=== PATIENT | male | born 1960 | race Caucasian/White ===

== ENCOUNTER 2018-01-13 21:48 | Day surgery (SDC) | payer OTHER ==
--- NOTE | 2018-01-13 21:56 | PDOC ---
History of Present Illness - General History Source: Patient Exam Limitations: No Limitations - History of Present Illness Initial Comments: 01/13/18 22:23 The patient is a 57-year-old male with no significant past medical history presents to the emergency department with abdominal pain. The patient presents with constant RLQ pain for the past 1 day, initially mild pain thats been progressively worsening throughout the day, that is aggravated with movement, relief noted when staying entirely still. Denies nausea, vomiting, or fever. The patient states he can intake solids/liquids w/o trouble recalls his last meals to be around 7:00 pm. The patient reports having regular bowel movements per before, denies diarrhea, constipation, hematochezia or melena, denies urinary concerns. Denies prior diverticulitis. The patient states he has a hx of mild chronic back pain, that isnt aggravated with the abdominal pain. PCP: None reported Allergies: NKDA Surgical/procedural history: Appendectomy. The patient reports having a colonoscopy done in the past with unremarkable results. Social history: Current everyday smoker, more than a pack a day for the past 50 years Denies alcohol use of recreational drug use. <Eda Madden - Last Filed: 01/13/18 22:30> <Marlin Redding - Last Filed: 01/14/18 06:35> - General Chief Complaint: Pain, Acute Stated Complaint: ABD PAIN Time Seen by Provider: 01/13/18 21:50 Past History <Eda Madden - Last Filed: 01/13/18 22:30> - Suicide/Smoking/Psychosocial Hx Smoking Status: Yes Smoking History: Current some day smoker Number of Cigarettes Smoked Daily: 10 Cigars Per Day: 2 <Marlin Redding - Last Filed: 01/14/18 06:35> - Past Medical History Allergies/Adverse Reactions: Allergies Allergy/AdvReac Type Severity Reaction Status Date / Time No Known Allergies Allergy Unverified 01/13/18 21:49 Home Medications: Ambulatory Orders NK [No Known Home Medication] 01/13/18 Review of Systems - Review of Systems Able to Perform ROS?: Yes Comments:: 01/13/18 22:23 CONSTITUTIONAL: Absent: fever, no chills, no fatigue EYES: Absent: visual changes ENT: Absent: ear pain, no sore throat CARDIOVASCULAR: Absent: chest pain, no palpitations RESPIRATORY: Absent: cough, no SOB GI: (+) RLQ pain. Absent: no nausea, no vomiting, no constipation, no diarrhea GENITOURINARY: Absent: dysuria, no frequency, no hematuria MUSKULOSKELETAL: Absent: back pain, no arthralgia, no myalgia SKIN: Absent: rash NEURO: Absent: headache <Eda Madden - Last Filed: 01/13/18 22:30> *Physical Exam - Vital Signs Last Vital Signs Temp Pulse Resp BP Pulse Ox 98.8 F 68 18 154/104 98 01/13/18 21:55 01/13/18 21:55 01/13/18 21:55 01/13/18 21:55 01/13/18 21:55 - Physical Exam Comments: 01/13/18 22:27 GENERAL: The patient is awake, alert, and fully oriented, in no acute distress. HEAD: Normal with no signs of trauma. EYES: Pupils equal, round and reactive to light, extraocular movements intact, sclera anicteric, conjunctiva clear with no pallor. ENT: Ears normal, nares patent, oropharynx clear without exudates. Moist mucous membranes. NECK: Normal range of motion, supple without lymphadenopathy, JVD, or masses. LUNGS: Breath sounds equal, clear to auscultation bilaterally. No wheeze/ crackles. HEART: Regular rate and rhythm, normal S1 and S2 without murmur or rub. ABDOMEN: (+) Normal bowel sounds. Distended but soft. Marked RLQ tenderness with positive rebound tenderness. No other tenderness. No involuntary guarding. No masses palpated. Femoral pulse was palpable b/l at the groin. EXTREMITIES: Normal range of motion, no edema. No clubbing or cyanosis. No cords, erythema, or tenderness. NEUROLOGICAL: Cranial nerves II through XII grossly intact. Normal speech, normal gait. PSYCH: Normal mood, normal affect. SKIN: Warm, Dry, normal turgor, no rashes or lesions noted. <Eda Madden - Last Filed: 01/13/18 22:30> ED Treatment Course - LABORATORY CBC & Chemistry Diagram: 01/13/18 22:15 01/13/18 22:15 - Medications Given in the ED: ED Medications Discontinued Medications Generic Name Dose Route Start Last Admin Trade Name Freq PRN Reason Stop Dose Admin Ketorolac Tromethamine 30 mg 01/13/18 22:12 01/13/18 22:22 Toradol Injection - IVPUSH 01/13/18 22:13 30 mg ONCE ONE Administration <ChanoEda - Last Filed: 01/13/18 22:30> - LABORATORY CBC & Chemistry Diagram: 01/13/18 22:15 01/13/18 22:15 <Marlin Redding - Last Filed: 01/14/18 06:35> Progress Note - Progress Note Progress Note: Documentation has been prepared under my direction and personally reviewed by me in its entirety. I attest that this documented accurately reflects all work, treatment, procedures and medical decision making performed by me. <Marlin Redding - Last Filed: 01/14/18 06:35> Medical Decision Making - Medical Decision Making As noted above, this 57-year-old man without significant past medical history presents with 2 day history of progressive right lower quadrant pain. He has no associated symptoms of fever/chills, nausea/vomiting/diarrhea, dysuria/ hematuria. Patient last ate at approximately 7 PM. Had normal bowel movement this morning. Exam as noted: Patient has localized marked tenderness in the right lower quadrant with local peritoneal irritation signs. Workup notable for mild elevation of white blood cell count and evidence of volume depletion with prerenal azotemia (BUN18/cre0.9 )/spec gravity urine of 0.125. Abdominal/pelvic CT with IV contrast performed. Preliminary results discussed with Dr. Lui of Imaging auctioneer tobacco: Area of inflammation in right lower quadrant in close proximity to surgical clips and apparent appendicolith. This could be consistent with stump appendicitis . [facility] is telephone instrument supervisor for general surgery. Case discussed with : Because of the distinct possibility of stump appendicitis versus Meckel's diverticulum, patient will be admitted (satellite ) to Dr. Frausto's service with plan for exploration in the morning at [facility]. Results of the workup and preliminary plan for admission and possible exploration discussed with the patient and his . They are in full understanding of results and with full agreement of the plan. They realize that the patient will be admitted to [facility] and likely have surgical procedure in the morning. As for the patient's previous appendectomy: The patient now recalls that it was performed at [facility] in 1995. It was a standard open non- laparoscopic appendectomy . He does not recall the name of the surgeon except that he was an Pashto cardiac surgeon. Repeat vital signs: BP 132/76, HR 63/min, T 98.6F, pulse oximetry 97% on RA 12-lead electrocardiogram normal sinus rhythm at 61 bpm; axis, intervals and wave forms are all normal; no evidence of ST or T-wave abnormalities 01/14/18 06:26 Portable chest x-ray performed: No evidence of acute disease <Marlin Redding - Last Filed: 01/14/18 06:35> *DC/Admit/Observation/Transfer - Attestations Scribe Attestion: 01/13/18 22:28 Documentation prepared by Eda Madden, acting as medical sales consultant for Marlin Redding MD. <Eda Madden - Last Filed: 01/13/18 22:30> - Discharge Dispostion Decision to Admit order: Yes <Marlin Redding - Last Filed: 01/14/18 06:35> Diagnosis at time of Disposition: Abdominal pain, acute, right lower quadrant - Discharge Dispostion Condition at time of disposition: Stable
[2018-01-13] MEDS ORDERED: KETOROLAC TROMETHAMINE 30 MG/1 ML VIAL IVPUSH ONE (22:12)
[2018-01-13] MEDS ORDERED: KETOROLAC TROMETHAMINE 30 MG/1 ML VIAL ONE (22:20)
[2018-01-13 22:31] LABS: BASO % 0.4 % (0-2.0); EOS % 1.8 % (0-4.5); HEMATOCRIT 46.8 % (35.4-49); HEMOGLOBIN 15.7 GM/dl (11.7-16.9); LYMPH % 25.2 % (8-40); MCH 30.1 pg (25.7-33.7); MCHC 33.5 g/dl (32.0-35.9); MEAN CELL VOLUME 89.8 fl (80-96); MEAN PLT VOLUME 6.9 fl (7.5-11.1); MONO % 6.1 % (3.8-10.2); NEUT % 66.5 % (42.8-82.8); PLATELET COUNT 217 K/MM3 (134-434); RBC 5.21 M/mm3 (4.00-5.60); RDW 13.5 % (11.9-15.9); WHITE BLOOD COUNT 11.4 K/mm3 (4.0-10.8)
[2018-01-13 22:42] LABS: ALBUMIN 3.5 g/dl (3.5-5.0); ALK PHOS 49 U/L (32-92); ANION GAP 4 (8-16); BILIRUBIN,TOTAL 0.4 mg/dl (0.2-1.0); BLOOD UREA NITROGEN 17 mg/dl (7-18); CALCIUM 8.8 mg/dl (8.4-10.2); CHLORIDE 107 mmol/L (98-107); CO2 27 mmol/L (22-28); CREATININE 0.8 mg/dl (0.6-1.3); GLUCOSE,RANDOM 95 mg/dl (74-106); POTASSIUM 3.9 mmol/L (3.5-5.1); SGOT/AST 15 U/L (10-42); SGPT/ALT 16 U/L (10-40); SODIUM 138 mmol/L (136-145); TOT PROT 6.2 g/dl (6.4-8.3)
[2018-01-13 23:41] LABS: URINE APPEARANCE Clear; URINE BILIRUBIN Negative (NEGATIVE); URINE COLOR Yellow; URINE GLUCOSE (UA) Negative (NEGATIVE); URINE KETONE Negative (NEGATIVE); URINE LEUK ESTERASE Negative (NEGATIVE); URINE NITRITE Negative (NEGATIVE); URINE PROTEIN Negative (NEGATIVE); URINE UROBILINOGEN 0.2 (0.2-1.0)
[2018-01-13 23:49] LABS: URINE WBC 0-2 (0-2)
[2018-01-14] MEDS ORDERED: PIPERACILLIN/TAZOB 3.375 GM 3.375 GM in DEXTROSE 5%-WATER - 50 ML IVPB ONE (01:02)
[2018-01-14] MEDS ORDERED: PIPERACILLIN/TAZOBACTAM 3.375 GM VIAL IVPB ONE (01:05)
[2018-01-14] MEDS ORDERED: CEFOXITIN SODIUM 2 GM in DEXTROSE 5%-WATER - 100 ML IVPB ONE ×2 (01:38→11:45)
[2018-01-14] MEDS ORDERED: ACETAMINOPHEN 1000 MG/100 ML VIAL (NON FORMULARY) IVPB PRN (01:38)
[2018-01-14] MEDS ORDERED: morphine CARPU-JECT 2 MG/1 ML DISP.SYRIN IVPUSH ONE ×2 (01:40→03:33)
[2018-01-14] MEDS ORDERED: morphine SULFATE 4 MG/ML VIAL ONE (01:55)
[2018-01-14] MEDS: LACTATED RINGERS SOLUTION 1,000 ML IV SCH ×3 (02:09→16:55)
[2018-01-14 03:50] VITALS: BMI 34.4
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
[2018-01-14 07:33] LABS: INR 0.96 (0.83-1.09); PROTHROMBIN TIME (PATIENT) 10.9 SEC (9.7-13.0)
[2018-01-14] MEDS ORDERED: morphine SULFATE 4 MG/ML VIAL IVPUSH ONE (07:57)
--- NOTE | 2018-01-14 09:02 | EKG ---
Test Reason : Blood Pressure : / mmHG Vent. Rate : 061 BPM Atrial Rate : 061 BPM P-R Int : 172 ms QRS Dur : 090 ms QT Int : 410 ms P-R-T Axes : 063 001 065 degrees QTc Int : 412 ms POOR DATA QUALITY, INTERPRETATION MAY BE ADVERSELY AFFECTED NORMAL SINUS RHYTHM NORMAL ECG NO PREVIOUS ECGS AVAILABLE Confirmed by MARIA TERESA TATE MD ([id number]) on 01/14/2018 9:01:40 AM Referred By: MD COBB Confirmed By:MARIA TERESA TATE MD
[2018-01-14] MEDS ORDERED: MORPHINE SULFATE 2 MG/ML VIAL IVPUSH PRN (09:29)
[2018-01-14] MEDS ORDERED: ONDANSETRON 4 MG/2 ML VIAL IVPUSH PRN ×2 (12:35→16:32)
[2018-01-14] MEDS ORDERED: ROCURONIUM BROMIDE 50 MG/5 ML VIAL ONE (12:54)
[2018-01-14] MEDS ORDERED: MIDAZOLAM HCL 2 MG/2 ML SINGLE DOSE VIAL ONE (12:54)
[2018-01-14] MEDS ORDERED: SUCCINYLCHOLINE CHLORIDE 200 MG/10 ML VIAL ONE (12:54)
[2018-01-14] MEDS ORDERED: BUPIVACAINE HCL/PF 0.5% (5MG/ML) 10 ML VIAL ONE (13:45)
[2018-01-14] MEDS ORDERED: DESFLURANE GAS 240 ML BOTTLE IH ONE (13:53)
[2018-01-14] MEDS ORDERED: DEXAMETHASONE SOD PHOSPHATE 4 MG/1 ML VIAL ONE (13:57)
[2018-01-14] MEDS ORDERED: BENZOIN/ALOE VERA/STORAX/TOLU 58 ML BOTTLE ONE (14:08)
[2018-01-14] MEDS ORDERED: BUPIVACAINE HCL/PF (5 MG/ML) 30 ML VIAL IJ ONE (15:10)
--- NOTE | 2018-01-14 16:02 | OP ---
Operative Note - Note: Operative Date: 01/14/18 Pre-Operative Diagnosis: stump appendicitis Operation: laparoscopic appendectomy (of stump) Findings: appendiceal base inflamed and adherent to terminal ileum and sidewall, adjacent veil of Treves partly inflamed, no significant fluid, adhesions of cecum and inflamed fat to right sidewall; apparent appendiceal base and short cuff of cecum taken with stapler Post-Operative Diagnosis: Same as Pre-op Surgeon: Pratik Frausto Anesthesiologist/PEDIATRICIAN: Juma Brown Specimens Removed: appendiceal stump with cuff of cecum to pathology Estimated Blood Loss (mls): 15 Drains & Tubes with Location: Hart out at end of case Drains, Volume Out (mls): 200 (UOP) Fluid Volume Replaced (mls): 1,000 (crystalloid) Operative Report Dictated: Yes
[2018-01-14] MEDS ORDERED: IBUPROFEN 800 MG/8 ML IJ IVPB ONE ×2 (16:16→16:30)
[2018-01-14] MEDS ORDERED: oxyCODONE HCL 5 MG TABLET PO PRN ×2 (16:20→16:32)
[2018-01-14] MEDS ORDERED: ACETAMINOPHEN 325 MG TABLET (FP) PO SCH (18:00)
[2018-01-14] MEDS ORDERED: CEFOXITIN SODIUM 2 GM in DEXTROSE 5%-WATER - 100 ML IVPB SCH (18:00)
[2018-01-14] MEDS: CEFOXITIN SODIUM 2 GM in DEXTROSE 5%-WATER - 100 ML IVPB SCH (18:35)
[2018-01-14] MEDS: ACETAMINOPHEN 325 MG TABLET (FP) PO SCH (18:40)
[2018-01-14] MEDS: IBUPROFEN 600 MG TABLET (FP) PO SCH (20:59)
[2018-01-14] MEDS ORDERED: IBUPROFEN 600 MG TABLET (FP) PO SCH (21:00)
[2018-01-15] MEDS: ACETAMINOPHEN 325 MG TABLET (FP) PO SCH ×3 (00:06→12:28)
[2018-01-15] MEDS: LACTATED RINGERS SOLUTION 1,000 ML IV SCH (01:23)
[2018-01-15] MEDS: CEFOXITIN SODIUM 2 GM in DEXTROSE 5%-WATER - 100 ML IVPB SCH ×2 (01:24→10:33)
[2018-01-15] MEDS: IBUPROFEN 600 MG TABLET (FP) PO SCH ×2 (03:20→09:14)
[2018-01-15 08:20] LABS: BASO % 0.2 % (0-2.0); HEMATOCRIT 41.8 % (35.4-49); HEMOGLOBIN 14.5 GM/dL (11.7-16.9); LYMPH % 8.9 % (8-40); MCH 31.2 pg (25.7-33.7); MCHC 34.8 g/dl (32.0-35.9); MEAN CELL VOLUME 89.8 fl (80-96); MEAN PLT VOLUME 7.3 fl (7.5-11.1); MONO % 3.3 % (3.8-10.2); NEUT % 87.6 % (42.8-82.8); PLATELET COUNT 190 K/MM3 (134-434); RBC 4.66 M/mm3 (4.00-5.60); RDW 14.1 % (11.9-15.9); WHITE BLOOD COUNT 13.6 K/mm3 (4.0-10.0)
[2018-01-15 10:45] VITALS: BP 122/67; PULSE 59; TEMP 98.7
--- NOTE | 2018-01-15 12:47 | DS ---
Physical Examination Vital Signs: Vital Signs Temperature 98.7 F 01/15/18 10:00 Pulse Rate 59 L 01/15/18 10:00 Respiratory Rate 18 01/15/18 10:00 Blood Pressure 122/67 01/15/18 10:00 O2 Sat by Pulse Oximetry (%) 96 01/15/18 09:00 no fevers Findings/Remarks: Pt seen ambulating in room, examined in bed, with family present. Pain controlled with nonnarcotics. Voiding and having BMs. Tolerating diet. RLQ pain is gone, just minimal incisional pain. Constitutional: Yes: No Distress, Calm, Obese Eyes: Yes: Conjunctiva Clear, EOM Intact HENT: Yes: Atraumatic, Normocephalic Cardiovascular: Yes: Regular Rate and Rhythm. No: Murmur Respiratory: Yes: Regular, CTA Bilaterally Gastrointestinal: Yes: Normal Bowel Sounds, Soft, Abdomen, Obese. No: Tenderness ...Rectal Exam: Yes: Deferred Extremities: No: Cool, Cyanosis Integumentary: Yes: Bruising (mild ecchymosis at infraumbilical and LLQ sites under dressings), Incision (x3 dressed). No: Jaundice, Rash Wound/Incision: Yes: Steri Strips (under dressings), Dressing Dry and Intact (x3 ). No: Dressing Removed Neurological: Yes: Alert, Oriented. No: Unsteady Gait Labs: CBC, BMP 01/15/18 07:50 mild postop leukocytosis, likely demargination Discharge Summary Reason For Visit: ACUTE STUMP APPENDICITIS Current Active Problems Abdominal pain, acute, right lower quadrant (Acute) Cannabis abuse, episodic use (Acute) Obesity due to excess calories (Acute) Other appendicitis (Acute) Right lower quadrant abdominal tenderness with rebound tenderness (Acute) Tobacco dependence due to cigarettes (Acute) Procedures: Principal: laparoscopic (stump) appendectomy Hospital Course: 57yo obese M smoker (cigs and MJ) with h/o open appendectomy 1995 presented with signs and symptoms of appendicitis. WBC 11, CT confirmed likely stump appendicitis with inflammation at cecal base and TI, no perforation or abscess, possible appendicolith, few clips visible. He was taken for diagnostic laparoscopy with findings of inflammation at cecal base and possible stump/base of appendix still visible - laparoscopic stump appendectomy performed taking small cuff of cecum as well. He received perioperative Cefoxitin, fluids and pain meds. Postoperatively, he tolerated diet, voided, had BMs and pain was controlled with oral nonnarcotics. He is ambulating well with minimal incisional pain only. Discharged to home with lifting restrictions to f/u in 2 weeks, and with PMD for smoking cessation. Time spent on discharge: 35 minutes. Condition: Good - Instructions Diet, Activity, Other Instructions: Postoperative instructions: You had a laparoscopic (stump) appendectomy on by Dr. Pratik Frausto of [facility]. Activity: Resume your usual activities gradually, but no heavy exertion or lifting more than 10-15 pounds for 1 month. Remove dressings 48 hours after surgery; sticky tapes underneath will fall off by themselves. You may shower daily starting then, just pat the incision areas dry. No bath or swimming until skin incisions are healed. Eat lightly at first, but advance to your usual diet as tolerated. Pain: For pain, you may use and alternate Tylenol (acetaminophen) and/or ibuprofen every 6 hours each as needed; this means that you can take one OR the other at 3-hour intervals. Do not take more than 4000mg of acetaminophen in a day. Take medications as prescribed or indicated on the labeling. Follow-up: Call Dr. Frausto's office at [phone] to make your postop appointment (Tuesday ~2 weeks after surgery). Clinic is held in the Diagnostic [facility] on the first floor of [facility]. Call the office if you have: * increasing pain not responsive to pain medication * fever of 101F or higher * vomiting * unusual or increasing bleeding or drainage from wounds * increasing redness or swelling at wound sites * inability to urinate Also, see your primary medical doctor (Dr. Jonas) within 1-2 weeks and discuss smoking cessation. Referrals: Jasmyne Jonas [Non Staff, Medical] - Disposition: HOME - Home Medications Comprehensive Discharge Medication List: Ambulatory Orders Acetaminophen [Tylenol .Regular Strength -] 650 mg PO Q6H tablet 01/15/18 Ibuprofen [Motrin -] 600 mg PO Q6H tablet 01/15/18
--- NOTE | 2018-01-18 11:22 | PATH ---
Surgical Pathology Report Patient Name: DONNA GONZALEZ [facility]. Rec. #: [id number] /Age/Gender: 1960 (Age: 57) / M Account: [id number] Location: AMBULATORY SURG Taken: 01/14/2018 Received: 01/16/2018 Reported: 01/18/2018 Physicians: Pratik Frausto M.D. PHYSICIAN EMERGENCY DEPT Specimen(s) Received APPENDICEAL STUMP WITH PART OF CECUM Clinical History Right lower quadrant pain, stump appendicitis Final Diagnosis APPENDICEAL STUMP WITH CUFF OF CECUM, LAPAROSCOPIC APPENDECTOMY: PORTION OF APPENDIX WITH MARKED ACUTE INFLAMMATION CONSISTENT WITH ACUTE STUMP APPENDICITIS AND PERIAPPENDICITIS. ACUTE SEROSITIS. COLONIC MUCOSA WITH MARKED ACUTE SUBSEROSAL INFLAMMATION. Electronically Signed Gerda Tom M.D. Gross Description Received in formalin labeled "appendiceal stump with cuff of cecum," is a 3.2 x 2.5 x 0.9 cm portion of soft tissue with a stapled margin of resection. The serosa is staples-echols and shaggy. Sectioning reveals a grossly unremarkable lumen. The specimen is entirely and sequentially submitted from proximal to distal in 4 cassettes with the staple line in cassette 1. 01/16/2018 saudi01/16/2018
--- NOTE | 2018-03-02 11:42 | OP ---
DATE OF OPERATION: 01/14/2018 PREOPERATIVE DIAGNOSIS: Stump appendicitis. POSTOPERATIVE DIAGNOSIS: Stump appendicitis. PROCEDURE: Laparoscopic appendectomy of appendiceal stump. SURGEON: Pratik Frausto MD ANESTHESIA: General endotracheal. ESTIMATED BLOOD LOSS: 15 mL. FLUIDS: 1000 mL crystalloid. URINE OUTPUT: 200 mL. SPECIMEN: Appendiceal stump with cuff of cecum to pathology. FINDINGS: The appendiceal base was inflamed and adherent to the terminal ileum and sidewall. The adjacent veil of Treves was partly inflamed. There were adhesions of the cecum and the inflamed fat to the right sidewall. No significant fluid. The apparent appendiceal base and a short cuff of cecum were taken with a stapler. DISPOSITION: Stable and extubated to PACU. INDICATIONS FOR PROCEDURE: The patient is a 57-year-old obese male smoker with a history of an open appendectomy in 1995 who presented with right lower quadrant pain beginning several nights earlier, which got worse to the point where he could hardly stand up. He had normal bowel function and no GI complaints, but the pain was still present after pain medication, and he presented to the emergency room where he was afebrile with a white count of 11,000, somewhat dehydrated by labs. A CT was done showing inflammatory changes adjacent to the cecum with a possible appendicolith and previous clips present near the psoas posteriorly but was suspicious for stump appendicitis without abscess or free fluid. Risks, benefits, and alternatives of diagnostic laparoscopy, laparoscopic, possible open, appendectomy, possible bowel resection were then discussed with the patient including, but not limited to bleeding, infection, injury to adjacent structures, intestinal or anastomotic leak or injury, intra-abdominal abscess, incisional hernia, need for further procedures, and alternatives inclusive of antibiotics, delayed or no surgery with their attendant risks. The patient desires to proceed with an operation and has signed informed consent for the same. He was started on fluids and antibiotics and brought to the OR for this procedure. OPERATIVE TECHNIQUE: The patient was brought to the operating room and laid supine on the operating table. Sequential compression devices were applied to bilateral lower extremities. Appropriate antibiotics were given preoperatively. After induction and intubation by Anesthesia, his abdominal hair was clipped, and a Hart catheter was placed in the patient's bladder, which was removed at the end of the case. The abdomen was then prepped and draped in sterile fashion. A small infraumbilical midline incision was made with a scalpel and brought into subcutaneous tissues with electrocautery until the abdominal wall fascia was identified, scored, and elevated with Derek clamps. The peritoneum was entered bluntly with the tip of a clamp and a fingertip inserted to ensure entry into the abdominal cavity in the absence of any underlying adhesions. A stay stitch of 0 Vicryl was then placed in the abdominal wall fascia with 0 Vicryl in a [id number] fashion for later closure, and a Lorenz trocar was introduced directly into the abdominal cavity and secured in place with the balloon. The abdomen was insufflated with carbon dioxide. The patient was placed in Trendelenburg position and the laparoscope inserted to inspect the abdominal cavity. Two additional 5-mm ports were placed in the suprapubic and left lower quadrant areas, and the camera was switched to the left lower quadrant port. The right lower quadrant was inspected with the small bowel manipulated medially to expose the cecum, and there was clearly inflammation in the area of the terminal ileum where it joined the cecum. Careful dissection ultimately revealed what appeared to be the appendiceal base stuck to the terminal ileum itself and the adjacent cecum and side wall. A [place] dissector was used to carefully dissect this area until what appeared to be the appendiceal base could be grasped with a grasper. It was from the terminal ileum veil of Treves and the edge of the cecum enough to be able to elevate it and insert a blue load of the Endo LETICIA stapler to transect the base of the appendix with a small cuff of cecum while avoiding the terminal ileum itself. Once this had been accomplished, the piece was placed in an EndoCatch bag as there was no residual mesoappendix to take and retrieved out the umbilical port site. It was passed off as a specimen for pathology. The Yany trocar and pneumoperitoneum were re-established and the operative field reinspected. There had been no significant fluid identified in the area or in the pelvis, but the suction instructor apparel manufacture was used to cleanse the operative field and retrieve any fluid that was then present. The patient was then returned to neutral position. The omentum tucked back over the operative area. The ports were removed under direct vision and then the camera port also removed and the abdomen exsufflated of carbon dioxide. The stay suture at the umbilical site was tied to close the fascia there. Local anesthetic was infiltrated into all 3 port sites. Hemostasis was achieved in the port sites with electrocautery where needed. The skin was closed with 4-0 subcuticular Vicryl sutures including a running at the umbilical site. Benzoin and Steri-Strips were applied to each incision, and dressings of gauze and Tegaderm were placed over these. The Hart catheter was removed from the patient's bladder. Counts were correct at the end of the procedure. He was then awakened and extubated by Anesthesia. He was then moved back to a stretcher and taken to the recovery room in stable condition having tolerated the procedure well. Pratik Frausto M.D. [id number]
== END 2018-01-15 14:41 | disposition home or self-care (01) ==
LOC: FER 21:48 → UNDOADMOB 01-14 03:08 → FM/S 01-14 03:08 → J6S 01-14 09:07 → FM/S 01-14 09:07 → JASUSAT 01-14 09:23 → J6S 01-14 09:23 → JASUSAT 01-15 14:41
PROVIDERS: ATTEND Surgery
PROC: 0DBH4ZZ Excision of Cecum, Percutaneous Endoscopic Approach (ICD-10-PCS; 2018-01-14)
PROC: 0DTJ4ZZ Resection of Appendix, Percutaneous Endoscopic Approach (ICD-10-PCS; principal; 2018-01-14 12:00)
DX: K36 Other appendicitis (principal); K38.8 Other specified diseases of appendix; E66.09 Other obesity due to excess calories; F17.210 Nicotine dependence, cigarettes, uncomplicated; F12.929 Cannabis use, unspecified with intoxication, unspecified
CPT/HCPCS: 36415; 71045-TC-FY; 74177-TC; 80053; 81003; 81015; 85025; 85610; 86850; 86900; 86901; 88304-TC; 93005; 94760; 99285-25; J0131

== ENCOUNTER 2018-03-08 05:12 | Emergency (ER) | payer OTHER ==
[2018-03-08 05:22] VITALS: BP 159/105; PULSE 67; TEMP 97.6; BMI 35.2
[2018-03-08] MEDS ORDERED: AMOX TR/POT CLAV 875MG/125MG TABLETS (FP) ONE (05:23)
[2018-03-08] MEDS ORDERED: IBUPROFEN 400 MG TABLET (FP) PO ONE ×2 (05:25)
[2018-03-08] MEDS ORDERED: AMOX TR/POT CLAV 875MG/125MG TABLETS (FP) PO ONE (05:25)
--- NOTE | 2018-03-08 05:28 | PDOC ---
History of Present Illness - General Chief Complaint: Pain, Acute Stated Complaint: LEFT EAR PAIN Time Seen by Provider: 03/08/18 05:24 History Source: Patient Exam Limitations: No Limitations - History of Present Illness Initial Comments: 03/08/18 05:28 57 year old M c/ no pmh p/w left ear pain x several days. Pt went to PMD yesterday, was started on cipro ear drops. However, pain worsened today. Denies fevers, chills, KEITH. Pain was worse, so came into ED. Past History - Past Medical History Allergies/Adverse Reactions: Allergies Allergy/AdvReac Type Severity Reaction Status Date / Time No Known Allergies Allergy Verified 03/08/18 05:16 Home Medications: Ambulatory Orders Amox-Tr/K Cl [Augmentin - 875Mg Tablet] 1 tab PO BID #14 tablet 03/08/18 COPD: No - Surgical History Appendectomy: Yes - Suicide/Smoking/Psychosocial Hx Smoking Status: Yes Smoking History: Current every day smoker Have you smoked in the past 12 months: Yes Number of Cigarettes Smoked Daily: 20 Cigars Per Day: 2 Information on smoking cessation initiated: Yes 'Breaking Loose' booklet given: 03/08/18 Hx Alcohol Use: No Drug/Substance Use Hx: No Substance Use Type: None Hx Substance Use Treatment: No Review of Systems - Review of Systems Able to Perform ROS?: Yes Comments:: 03/08/18 05:29 GENERAL/CONSTITUTIONAL: [No fever or chills. No weakness. No weight change.] HEAD, EYES, EARS, NOSE AND THROAT: [No change in vision. No sore throat.] + left ear pain. CARDIOVASCULAR: [No chest pain or shortness of breath.] RESPIRATORY: [No cough, wheezing, or hemoptysis.] GASTROINTESTINAL: [No nausea, vomiting, diarrhea or constipation. No rectal bleeding.] GENITOURINARY: [No dysuria, frequency, or change in urination.] MUSCULOSKELETAL: [No joint or muscle swelling or pain. No neck or back pain.] SKIN AND BREASTS: [No rash or easy bruising.] NEUROLOGIC: [No headache, vertigo, loss of consciousness, or loss of sensation.] PSYCHIATRIC: [No depression or anxiety.] ENDOCRINE: [No increased thirst. No abnormal weight change.] HEMATOLOGIC/LYMPHATIC: [No anemia, easy bleeding, or history of blood clots.] ALLERGIC/IMMUNOLOGIC: [No hives or skin allergy. No latex allergy.] *Physical Exam - Vital Signs Last Vital Signs Temp Pulse Resp BP Pulse Ox 97.6 F 67 18 159/105 H 100 03/08/18 05:18 03/08/18 05:18 03/08/18 05:18 03/08/18 05:18 03/08/18 05:18 - Physical Exam Comments: 03/08/18 05:30 GENERAL: Awake, alert, and fully oriented, in no acute distress HEAD: No signs of trauma EYES: EOMI, sclera anicteric, conjunctiva clear ENT: Auricles normal inspection, hearing grossly normal, nares patent,Moist mucosa. Right TM clear without erythema or drainage. Left TM with erythema, bulge and discharge. No tenderness to the auricle. NECK: Normal ROM, supple EXTREMITIES: Normal range of motion, no edema. No clubbing or cyanosis. No cords, erythema, or tenderness NEUROLOGICAL: Cranial nerves II through XII grossly intact. Normal speech, normal gait SKIN: Warm, Dry, normal turgor, no rashes or lesions noted. Medical Decision Making - Medical Decision Making 03/08/18 05:32 Vital Signs Temp Pulse Resp BP Pulse Ox 97.6 F 67 18 159/105 H 100 03/08/18 05:18 03/08/18 05:18 03/08/18 05:18 03/08/18 05:18 03/08/18 05:18 Pt with severe ear pain I suspect otitis media. Given the severe pain, initiate augmentin. I advised that given her PMD initiated him on cipro drops and that he already is on it, that he should continue the cipro drops. NSAIDS and/or tylenol for pain control. Follow up with PMD. Pt verbalizes understanding and agrees with plan. *DC/Admit/Observation/Transfer Diagnosis at time of Disposition: Otitis media Qualifiers: Otitis media type: other nonsuppurative Chronicity: acute Laterality: left Recurrence: not specified as recurrent Qualified Code(s): H65.192 - Other acute nonsuppurative otitis media, left ear - Discharge Dispostion Disposition: HOME Condition at time of disposition: Stable Decision to Admit order: No - Prescriptions Prescriptions: Amox-Tr/K Cl [Augmentin - 875Mg Tablet] 1 tab PO BID #14 tablet - Referrals - Patient Instructions Printed Discharge Instructions: Middle Ear Infection Additional Instructions: Take augmentin every 12 hours for 7 days. You may take 600 mg ibuprofen every 6 hours and/or 650 mg tylenol every 4 hours as needed for pain. Because these medications work through different pathways, you can take the medications as the same time. It may take several days before your symptoms improve. Please follow up with your primary care physician. Please continue to use the ear drops as prior. - Post Discharge Activity
== END 2018-03-08 05:31 | disposition home or self-care (01) ==
LOC: FER 05:12
DX: H65.192 Other acute nonsuppurative otitis media, left ear (principal); F17.210 Nicotine dependence, cigarettes, uncomplicated
CPT/HCPCS: 99281-25

== ENCOUNTER 2018-12-25 03:50 | Emergency (ER) | payer OTHER ==
[2018-12-25] MEDS ORDERED: NEOMYCIN/POLYMYXN/HC OTIC SOLUTION 10 ML BOTTLE AS ONE (03:54)
[2018-12-25] MEDS ORDERED: NEOMYCIN/POLYMYXN/HC OTIC SOLUTION 10 ML BOTTLE ONE (03:55)
[2018-12-25 03:58] VITALS: BP 194/117; PULSE 66; TEMP 98; BMI 35.6
--- NOTE | 2018-12-25 04:06 | PDOC ---
History of Present Illness - General Chief Complaint: Pain Stated Complaint: LEFT EAR PAIN Time Seen by Provider: 12/25/18 03:54 History Source: Patient - History of Present Illness Initial Comments: 12/25/18 04:10 ear ache, l ear started on amox 2 days ago by ABIGAIL worsening pain Timing/Duration: other (2 days) Severity: moderate Modifying Factors: worse with: medication Associated Symptoms: denies: fever/chills Past History - Past Medical History Allergies/Adverse Reactions: Allergies Allergy/AdvReac Type Severity Reaction Status Date / Time No Known Allergies Allergy Verified 12/25/18 03:52 Home Medications: Ambulatory Orders Amoxicillin - [Amoxicillin 500mg Capsule -] 875 mg PO BID 12/25/18 COPD: No HTN: Yes - Surgical History Appendectomy: Yes - Suicide/Smoking/Psychosocial Hx Smoking Status: Yes Smoking History: Current every day smoker Have you smoked in the past 12 months: Yes Number of Cigarettes Smoked Daily: 20 Cigars Per Day: 2 Information on smoking cessation initiated: Yes 'Breaking Loose' booklet given: 03/08/18 Hx Alcohol Use: No Drug/Substance Use Hx: No Substance Use Type: None Hx Substance Use Treatment: No Review of Systems - Review of Systems All Other Systems: Reviewed and Negative *Physical Exam - Vital Signs Last Vital Signs Temp Pulse Resp BP Pulse Ox 98 F 66 18 194/117 H 99 12/25/18 03:53 12/25/18 03:53 12/25/18 03:53 12/25/18 03:53 12/25/18 03:53 - Physical Exam General Appearance: Yes: Nourished HEENT: positive: Other (l OE; unable to visualize TM) Respiratory/Chest: positive: Lungs Clear Cardiovascular: positive: Regular Rhythm Musculoskeletal: positive: Normal Inspection Extremity: positive: Normal Capillary Refill ED Treatment Course - Medications Given in the ED: ED Medications Discontinued Medications Generic Name Dose Route Start Last Admin Trade Name Freq PRN Reason Stop Dose Admin Neomycin/Polymyxin/Hydrocortisone 4 drop 12/25/18 03:54 12/25/18 03:58 Cortisporin Otic Solution - 12/25/18 03:55 4 drop ONCE ONE Administration Medical Decision Making - Medical Decision Making 12/25/18 04:11 OE wick placed cortisporin continue amox asymptomatic htn diet/ exercise PCP fu *DC/Admit/Observation/Transfer Diagnosis at time of Disposition: Asymptomatic hypertension Otitis externa Qualifiers: Otitis externa type: unspecified type Chronicity: acute Laterality: left Qualified Code(s): H60.502 - Unspecified acute noninfective otitis externa, left ear - Discharge Dispostion Disposition: HOME Condition at time of disposition: Stable - Referrals Referrals: Jacinto De La Cruz MD [Staff Physician] - - Patient Instructions Printed Discharge Instructions: DI for Otitis Externa Additional Instructions: Exercise 45 minutes, 4x/ week for elevated blood pressure Try to lose 20 lbs for elevated blood pressure. Follow up with your primary care provider - Post Discharge Activity
== END 2018-12-25 04:12 | disposition home or self-care (01) ==
LOC: FER 03:50
DX: H60.502 Unspecified acute noninfective otitis externa, left ear (principal); I10 Essential (primary) hypertension; F17.210 Nicotine dependence, cigarettes, uncomplicated
CPT/HCPCS: 99281-25

== ENCOUNTER 2019-05-06 17:13 | Emergency (ER) | payer OTHER ==
[2019-05-06 17:24] VITALS: BP 156/84; PULSE 76; TEMP 97.8; BMI 34.5
--- NOTE | 2019-05-06 17:45 | PDOC ---
History of Present Illness <Karthikeyan Pimentel - Last Filed: 05/06/19 19:20> - General History Source: Patient Exam Limitations: No Limitations - History of Present Illness Initial Comments: 58 year old male with PMH HTN, nicotine use, pneumonia x2 presented to ED for cough x1.5 weeks, which became productive x2.5 days associated with shortness of breath. Pt reported he initially developed dry cough, nasal congestion x1.5 weeks ago, then felt better a few days later, until 2.5 days ago when he began to have a productive cough (yellow/white), and today he developed TURNER, prompting him to come to the ED. Pt denied chest pain, LE swelling, history of heart failure. ROS General: denied fever, chills, generalized weakness. HEENT: denied sore throat, rhinorrhea, ear pain. Cardiovascular: denied chest pain, palpitations, syncope, diaphoresis. Respiratory: admitted to shortness of breath, cough, sputum production. denied hemoptysis. Gastrointestinal: denied abdominal pain, nausea, vomiting, diarrhea, constipation, blood in stool. Genitourinary: denied dysuria, increased urinary frequency, hematuria, urinary incontinence, flank pain. Back: denied back pain. Musculoskeletal: denied joint pain, muscle pain, joint swelling. Neurological: denied headache, dizziness, numbness, tingling, weakness. Integumentary: denied rash, laceration, abrasion. Hematologic/Lymphatic: denied bruising or bleeding. PE Constitutional: Well-nourished, Well-developed, appearing stated age. HEENT: head is normocephalic, atraumatic. EOMI. PERRLA. Neck: supple. Full ROM. Cardiovascular: regular heart rhythm. no murmurs. no pericardial friction rub. Respiratory: rhonchi bilaterally. no stridor. speaking full sentences. no crackles. Gastrointestinal: soft, nontender. normal bowel sounds. no rebound, guarding, masses. Extremities: peripheral pulses intact. no lower extremity edema. Neurological: CN 2-12 grossly intact. moves all four extremities. Psych: awake, alert, oriented x3. follows commands. answers questions appropriately. <Louisa Raza - Last Filed: 05/07/19 06:43> - General Chief Complaint: Respiratory Stated Complaint: COUGH, COLD SX Time Seen by Provider: 05/06/19 17:45 Past History <Karthikeyan Pimentel - Last Filed: 05/06/19 19:20> - Psycho Social/Smoking Cessation Hx Smoking Status: Yes Smoking History: Current every day smoker Have you smoked in the past 12 months: Yes Number of Cigarettes Smoked Daily: 15 Cigars Per Day: 2 Information on smoking cessation initiated: Yes 'Breaking Loose' booklet given: 03/08/18 Hx Alcohol Use: No Drug/Substance Use Hx: No Substance Use Type: None Hx Substance Use Treatment: No <Louisa Raza - Last Filed: 05/07/19 06:43> - Past Medical History Allergies/Adverse Reactions: Allergies Allergy/AdvReac Type Severity Reaction Status Date / Time No Known Allergies Allergy Verified 05/06/19 17:16 Home Medications: Ambulatory Orders Albuterol Sulfate Inhaler - [Ventolin HFA Inhaler -] 1 - 2 inh PO Q4H PRN #1 inhaler 05/06/19 Amlodipine Besylate 5 mg PO DAILY 05/06/19 Azithromycin [Zithromax -] 250 mg PO DAILY #6 tab 05/06/19 Finasteride [Proscar] 5 mg PO DAILY 05/06/19 Tamsulosin HCl [Flomax] 0.4 mg PO DAILY 05/06/19 predniSONE [Deltasone -] 40 mg PO DAILY #8 tablet 05/06/19 *Physical Exam - Vital Signs Last Vital Signs Temp Pulse Resp BP Pulse Ox 97.8 F 76 18 156/84 97 05/06/19 17:13 05/06/19 17:13 05/06/19 17:13 05/06/19 17:13 05/06/19 17:13 <Karthikeyan Pimentel - Last Filed: 05/06/19 19:20> - Vital Signs Last Vital Signs Temp Pulse Resp BP Pulse Ox 97.8 F 76 18 156/84 97 05/06/19 17:13 05/06/19 17:13 05/06/19 17:13 05/06/19 17:13 05/06/19 17:13 <Louisa Raza - Last Filed: 05/07/19 06:43> ED Treatment Course - Medications Given in the ED: ED Medications Discontinued Medications Generic Name Dose Route Start Last Admin Trade Name Freq PRN Reason Stop Dose Admin Acetaminophen 975 mg 05/06/19 17:54 05/06/19 18:08 Tylenol - PO 05/06/19 17:55 975 mg ONCE ONE Administration Albuterol/Ipratropium 3 amp 05/06/19 17:49 05/06/19 18:10 Duoneb - NEB 05/06/19 17:50 3 amp ONCE ONE Administration Prednisone 40 mg 05/06/19 17:54 05/06/19 18:08 Deltasone - PO 05/06/19 17:55 40 mg ONCE ONE Administration <Karthikeyan Pimentel - Last Filed: 05/06/19 19:20> Medical Decision Making - Medical Decision Making 58 year old male with above PMH presented to ED for productive cough associated with TURNER. Initial Vital Signs Temp Pulse Resp BP Pulse Ox 97.8 F 76 18 156/84 97 05/06/19 17:13 05/06/19 17:13 05/06/19 17:13 05/06/19 17:13 05/06/19 17:13 Afebrile. No tachycardia. No tachypnea. Hypertensive. No hypoxia on room air. Labs ordered: none Imaging ordered: CXR Medications ordered: duoneb, tylenol 975 mg PO once, prednisone 40 mg PO once 05/06/19 19:01 CXR shows possible infiltrate, will treat as COPD exacerbation with Prednisone and Azithromycin. <Louisa Raza - Last Filed: 05/07/19 06:43> Discharge - Admission No <Karthikeyan Pimentel - Last Filed: 05/06/19 19:20> - Discharge Information Problems reviewed: Yes - Admission No <Louisa Raza - Last Filed: 05/07/19 06:43> - Discharge Information Clinical Impression/Diagnosis: Productive cough, Shortness of breath Condition: Improved Disposition: HOME - Additional Discharge Information Prescriptions: Albuterol Sulfate Inhaler - [Ventolin HFA Inhaler -] 1 - 2 inh PO Q4H PRN #1 inhaler PRN Reason: Shortness Of Breath Azithromycin [Zithromax -] 250 mg PO DAILY #6 tab predniSONE [Deltasone -] 40 mg PO DAILY #8 tablet - Follow up/Referral Referrals: Jasmyne Jonas [Primary Care Provider] - - Patient Discharge Instructions Patient Printed Discharge Instructions: DI for Acute Bronchitis Additional Instructions: Return to the emergency department immediately with ANY new, persistent or worsening symptoms. You MUST call and follow up with your doctor tomorrow for further evaluation of your symptoms. Results were discussed with you. Please make sure your doctor reviews the results of your emergency evaluation. Your Emergency Department visit is not complete without a follow up with your doctor. If you had any xrays during your visit, it was read preliminarily by myself, a Radiologist will review it and if there are any additional findings we will call you. - Post Discharge Activity Work/Back to School Note: Back to Work
[2019-05-06] MEDS ORDERED: ALBUTEROL SO4 2.5/IPRATROPIUM 0.5 INH SOL 3 ML VIAL.NEB. NEB ONE ×2 (17:49→18:04)
--- NOTE | 2019-05-06 17:53 | PDOC ---
Attending Attestation - Resident Resident Name: Luz MarinaNguyena - ED Attending Attestation I have performed the following: I have examined & evaluated the patient, The case was reviewed & discussed with the resident, I agree w/resident's findings & plan, Exceptions are as noted - HPI HPI: 05/06/19 17:52 58y M hx of copd presents with complaint of cough, congestion for about a week. Patient has had a moist sounding cough, nasal congestion as well as worsening dyspnea on exertion He denies any fever, chills, chest pain, leg swelling, hemoptysis. Patient is a chronic smoker GENERAL: The patient is awake, alert, and fully oriented, Nontoxic - in no acute distress. LUNGS: Rhonchorous breath sounds and wheezing bilaterally, no acute respiratory distress HEART: Regular rate and rhythm, normal S1 and S2 without murmur, rub or gallop. ABDOMEN: Soft, nontender, No guarding, no rebound. No CVA tenderness EXTREMITIES: Normal range of motion, no edema. NEUROLOGICAL: No facial assymetry, Normal speech, Moving all 4 extremities spontaneously and symmetrically PSYCH: Normal mood, normal affect. SKIN: Warm, Dry, normal turgor, Chest x-ray's possible infiltrates will treat as possible COPD exacerbation as the patient is a chronic smoker Patient saturation is normal the patient does feel improved with albuterol We will give the patient prednisone as well as a azithromycin Return precautions were discussed I discussed the physical exam findings, ancillary test results and final diagnoses with the patient. I answered all of the patient's questions. The patient was satisfied with the care received and felt comfortable with the discharge plan and treatment plan. The patient will call their primary care physician within 24 hours to arrange follow-up and will return to the Emergency Department with any new, persistent or worsening symptoms.
[2019-05-06] MEDS ORDERED: ACETAMINOPHEN 325 MG TABLET (FP) PO ONE (17:54)
[2019-05-06] MEDS ORDERED: predniSONE 20 MG TABLET (UD) PO ONE (17:54)
[2019-05-06] MEDS ORDERED: ACETAMINOPHEN 325 MG TABLET (FP) ONE (18:03)
[2019-05-06] MEDS ORDERED: predniSONE 20 MG TABLET (UD) ONE (18:03)
== END 2019-05-06 19:25 | disposition home or self-care (01) ==
LOC: FER 17:13
PROC: 3E0F7GC Introduction of Other Therapeutic Substance into Respiratory Tract, Via Natural or Artificial Opening (ICD-10-PCS; principal; 2019-05-06)
DX: R05 Cough (principal); R06.02 Shortness of breath; I10 Essential (primary) hypertension; F17.210 Nicotine dependence, cigarettes, uncomplicated
CPT/HCPCS: 71046-TC-FY; 99282-25

== ENCOUNTER 2021-05-08 15:25 | Emergency (ER) | payer OTHER ==
[2021-05-08] MEDS ORDERED: ACETAMINOPHEN 500 MG TABLET (FP) PO ONE (15:35)
[2021-05-08] MEDS ORDERED: ALBUTEROL SO4 2.5/IPRATROPIUM 0.5 INH SOL 3 ML VIAL.NEB. NEB ONE ×2 (15:35→15:51)
[2021-05-08 15:40] VITALS: BMI 33.9
[2021-05-08 16:54] LABS: BASO % 3.6 % (0-2.0); EOS % 2.3 % (0-4.5); HEMATOCRIT 49.4 % (35.4-49); HEMOGLOBIN 16.5 GM/dl (11.7-16.9); LYMPH % 9.9 % (8-40); MCH 30.1 pg (25.7-33.7); MCHC 33.4 g/dl (32.0-35.9); MEAN CELL VOLUME 90.1 fl (80-96); MEAN PLT VOLUME 7.8 fl (7.5-11.1); MONO % 8.7 % (3.8-10.2); NEUT % 75.5 % (42.8-82.8); PLATELET COUNT 161 10^3/uL (134-434); RBC 5.49 M/mm3 (4.00-5.60); RDW 13.1 % (11.9-15.9); WHITE BLOOD COUNT 5.8 K/mm3 (4.0-10.8)
[2021-05-08 17:02] LABS: ALBUMIN 4.2 g/dl (3.4-5.0); BILIRUBIN,DIRECT 0.1 mg/dL (0.0-0.2); BILIRUBIN,TOTAL 0.9 mg/dl (0.2-1); CALCIUM 8.9 mg/dl (8.5-10); TOT PROT 7.3 g/dl (6.4-8.2)
[2021-05-08 17:02] LABS: ACTIVATED PTT 29.4 SECONDS (25.2-36.5)
[2021-05-08 17:06] LABS: INR 1.17 (0.82-1.09)
[2021-05-08 17:51] VITALS: BP 129/72; PULSE 82
[2021-05-08 17:53] LABS: VENOUS BASE EXCESS 1.3 mmol/L (-2-2); VENOUS O2 SATURATION 35.7 % (70-80); VENOUS PCO2 47.4 mmHg (38-52); VENOUS PH 7.378 (7.310-7.410)
[2021-05-08] MEDS ORDERED: methylPREDNISolone NA SUCC 125 MG/2 ML VIAL IVPUSH ONE (18:03)
[2021-05-08] MEDS ORDERED: AZITHROMYCIN 250 MG TABLET PO ONE (18:03)
[2021-05-08] MEDS ORDERED: methylPREDNISolone NA SUCC 125 MG/2 ML VIAL ONE (18:23)
[2021-05-08] MEDS ORDERED: AZITHROMYCIN 250 MG TABLET ONE (18:24)
[2021-05-08 18:32] VITALS: TEMP 100.3
== END 2021-05-08 18:42 | disposition home or self-care (01) ==
LOC: FER 15:25
PROC: 3E0F7GC Introduction of Other Therapeutic Substance into Respiratory Tract, Via Natural or Artificial Opening (ICD-10-PCS; principal; 2021-05-08)
PROC: 3E033GC Introduction of Other Therapeutic Substance into Peripheral Vein, Percutaneous Approach (ICD-10-PCS; 2021-05-08)
DX: J20.9 Acute bronchitis, unspecified (principal); Z11.52 Encounter for screening for COVID-19
CPT/HCPCS: 36415; 71045-TC-FY; 80053; 82248; 82550; 82728; 82803; 83605; 83615; 84484; 85025; 85610; 85730; 86140; 87040; 87804; 87807; 93005; 99285-25; C9803; U0003; U0005

== ENCOUNTER 2023-11-08 22:50 | Observation (INO) | payer OTHER ==
[2023-11-08 23:16] LABS: HEMATOCRIT 49.1 % (35.4-49); HEMOGLOBIN 16.3 G/dL (11.7-16.9); MCH 29.5 pg (25.7-33.7); MCHC 33.2 g/dl (32.0-35.9); MEAN CELL VOLUME 88.9 fl (80-96); MEAN PLT VOLUME 8.1 fl (7.5-11.1); PLATELET COUNT 168.9 10^3/uL (134-434); RBC 5.52 10^6/uL (4.00-5.60); RDW 14.4 % (11.9-15.9); WHITE BLOOD COUNT 9.3 10^3/uL (4.0-10.8)
[2023-11-08 23:24] LABS: PLATELET ESTIMATE ADEQUATE
[2023-11-08 23:37] LABS: ALBUMIN 4.3 g/dl (3.4-5.0); BILIRUBIN,TOTAL 0.7 mg/dl (0.2-1); CALCIUM 9.5 mg/dl (8.5-10.1); CREATININE 0.9 mg/dl (0.6-1.3); POTASSIUM 3.9 mmol/L (3.5-5.1)
[2023-11-09] MEDS ORDERED: amLODIPine BESYLATE 5 MG TABLET (FP) ONE (00:04)
[2023-11-09] MEDS: amLODIPine BESYLATE 5 MG TABLET (FP) PO ONE (00:08)
[2023-11-09] MEDS ORDERED: FAMOTIDINE 20 MG/50 ML IVPB 20 MG/50 ML MG IVPB ONE (01:20)
[2023-11-09] MEDS: FAMOTIDINE 20 MG/50 ML IVPB 20 MG/50 ML MG IVPB ONE (01:24)
[2023-11-09] MEDS ORDERED: DOCUSATE SODIUM 100 MG CAPSULE (FP) PO PRN (02:16)
[2023-11-09] MEDS ORDERED: ACETAMINOPHEN 325 MG TABLET (FP) PO PRN (02:16)
[2023-11-09 04:09] VITALS: BMI 36.3
[2023-11-09 08:39] LABS: ANION GAP 8 mmol/L (4-13); CALCIUM 9.4 mg/dl (8.5-10.1); CHLORIDE 105 mmol/L (98-107); CO2 25 mmol/L (21-32); CREATININE 0.9 mg/dl (0.6-1.3); GLUCOSE,RANDOM 123 mg/dl (74-106); POTASSIUM 3.8 mmol/L (3.5-5.1); SODIUM 138 mmol/L (136-145)
[2023-11-09] MEDS: LISINOPRIL 5 MG TABLET PO SCH (09:02)
[2023-11-09] MEDS: ATORVASTATIN CA 40 MG TABLET (FP) PO SCH (09:02)
[2023-11-09] MEDS: amLODIPine BESYLATE 5 MG TABLET (FP) PO SCH (09:02)
[2023-11-09 09:30] LABS: BASO % 0.6 % (0-2.0); EOS % 4.3 % (0-4.5); HEMATOCRIT 44.4 % (35.4-49); HEMOGLOBIN 15.3 GM/dL (11.7-16.9); LYMPH % 28.5 % (8-40); MCH 30.2 pg (25.7-33.7); MCHC 34.4 g/dl (32.0-35.9); MEAN CELL VOLUME 87.8 fl (80-96); MEAN PLT VOLUME 8.2 fl (7.5-11.1); NEUT % 59.6 % (42.8-82.8); PLATELET COUNT 197 10^3/uL (134-434); RBC 5.06 M/mm3 (4.00-5.60); RDW 13.5 % (11.9-15.9); WHITE BLOOD COUNT 8.1 K/mm3 (4.0-10.0)
[2023-11-09 11:23] VITALS: RESP 18
[2023-11-09 12:17] VITALS: BP 149/71; PULSE 67; TEMP 98.3
[2023-11-09] MEDS: NICOTINE 14 MG/24 HOURS TOPICAL PATCH TD SCH (12:18)
== END 2023-11-09 13:04 | disposition home or self-care (01) ==
LOC: FER 22:50 → FM/S 11-09 02:42
PROVIDERS: ADMIT Internal Medicine; ATTEND Internal Medicine
PROC: 3E033GC Introduction of Other Therapeutic Substance into Peripheral Vein, Percutaneous Approach (ICD-10-PCS; principal; 2023-11-09)
DX: I16.0 Hypertensive urgency (principal); R06.02 Shortness of breath; R94.31 Abnormal electrocardiogram [ECG] [EKG]; N40.0 Benign prostatic hyperplasia without lower urinary tract symptoms
CPT/HCPCS: 0241U-QW; 36415; 71045-TC-FY; 80048; 80053; 83880; 84484; 85025; 85027; 93005; 96365; 99285-25; G0378